=== PATIENT | male | born 1985 | race Hispanic/Latino ===

== ENCOUNTER 2021-02-06 19:27 | Emergency (ER) | payer OTHER, SELFPAY ==
[2021-02-06] MEDS ORDERED: Ibuprofen 800 MG TAB ONE (20:55)
== END 2021-02-06 21:03 | disposition home or self-care (01) ==
LOC: MADERS 19:27
DX: S43.402A Unspecified sprain of left shoulder joint, initial encounter (principal); V64.5XXA Driver of heavy transport vehicle injured in collision with heavy transport vehicle or bus in traffic accident, initial encounter